=== PATIENT | male | born 1990 | race African-American/Black ===

== ENCOUNTER 2019-06-29 13:17 | Emergency (ER) | payer BC ==
[2019-06-29 13:30] VITALS: BP 146/76; PULSE 69; RESP 18; TEMP 98.6
[2019-06-29] MEDS ORDERED: PROPARACAINE 0.5% OPHTH DROPS 15 ML BTL RIGHT EYE STA (14:05)
[2019-06-29] MEDS ORDERED: ERYTHROMYCIN 5 MG/GM OPHTH OINT 3.5 GM TUBE BOTH EYES STA (14:55)
--- NOTE | 2019-06-29 15:00 | ED ---
General Adult HPI - General Chief complaint: Upper Respiratory Infection Stated complaint: Congested Time Seen by Provider: 06/29/19 13:29 Source: patient, RN notes reviewed, old records reviewed Mode of arrival: ambulatory Limitations: no limitations - History of Present Illness Initial comments: 29-year-old male patient presents ED chief complaint of waking up this morning with last matting, purulent drainage from eyes. Patient also reports that they're mildly itchy and red. Patient reports that he may itched his right eye quite a bit, now has some burning in his right eye. Patient denies any changes in vision. Patient denies any use of contact lenses. Patient denies any other complaints. Systemic: Pt denies fatigue, fever/chills, rash. Pt denies weakness, night sweats, weight loss. Neuro: Pt denies headache, visual disturbances, syncope or pre-syncope. HEENT: Pt denies otalgia, rhinorrhea, pharyngitis or notable lymphadenopathy. Cardiopulmonary: Pt denies chest pain, SOB, heart palpitations, dyspnea on exertion. Abdominal/GI: Pt denies abdominal pain, n/v/d. : Pt denies dysuria, burning w/ urination, frequency/urgency. Denies new onset urinary or bowel incontinence. MSK: Pt denies myalgia, loss of strength or function in extremities. Neuro: Pt denies new onset weakness, paresthesias. - Related Data Previous Rx's Medication Instructions Recorded Erythromycin Ophth Oint [Romycin 1 applic BOTH EYES QID 7 Days #1 06/29/19 Ophth Oint] tube Allergies Allergy/AdvReac Type Severity Reaction Status Date / Time No Known Allergies Allergy Verified 06/29/19 13:30 Review of Systems ROS Statement: Those systems with pertinent positive or pertinent negative responses have been documented in the HPI. ROS Other: All systems not noted in ROS Statement are negative. Past Medical History Past Medical History: No Reported History History of Any Multi-Drug Resistant Organisms: None Reported Past Surgical History: No Surgical Hx Reported Past Psychological History: No Psychological Hx Reported Smoking Status: Never smoker Past Alcohol Use History: Occasional Past Drug Use History: None Reported General Exam - General Exam Comments Initial Comments: Constitutional: NAD, AOX3, Pt has pleasant affect. HEENT: NC/AT, trachea midline, neck supple, no lymphadenopathy. Posterior pharynx non erythematous, without exudates. External ears appear normal, without discharge. Mucous membranes moist. Eyes PERRLA, EOM intact. There is no scleral icterus. No pallor noted. IOP 18 bilaterally. Mild injection noted bilaterally. Flourescene strain performed in right eye, did not display any corneal abrasion.Cardiopulmonary: RRR, no murmurs, rubs or gallops, no JVD noted. Lungs CTAB in anterior and posterior upton. No peripheral edema. Abdominal exam: Abdomen soft and non-distended. Abdomen non-tender to palpation in all 4 quadrants. Bowel sounds active in LLQ. No hepatosplenomegaly. No ecchymosis Neuro: CN II-XII grossly intact. No nuchal rigidity. No raccon eyes, no quintanilla sign, no hemotympanum. No cervical spinal tenderness. MSK: No posterior calf tenderness bilaterally, homans sign negative bilaterally. Posterior tibialis and radial pulse +2 bilaterally. Sensation intact in upper and lower extremities. Full active ROM in upper and lower extremities, 5/5 stregnth. Limitations: no limitations Course Vital Signs 06/29/19 06/29/19 13:27 13:32 Temperature 98.6 F Pulse Rate 69 Respiratory 18 18 Rate Blood Pressure 146/76 O2 Sat by Pulse 98 Oximetry Medical Decision Making - Medical Decision Making 29-year-old male patient presents ED chief complaint of waking up this morning with last matting, purulent drainage from eyes. Patient also reports that they're mildly itchy and red. Patient reports that he may itched his right eye quite a bit, now has some burning in his right eye. Patient denies any changes in vision. Patient denies any use of contact lenses. Patient denies any other complaints. Pt VSS, afebrile. Physical exam displayed: IOP 18 bilaterally. Mild injection noted bilaterally. Flourescene strain performed in right eye, did not display any corneal abrasion. Patient will be discharged with erythromycin for her conjunctivitis. Patient will follow-up with primary care provider, will follow up with hose tubing backer if symptoms persist or worsen. Case discussed with Dr. Joseph. Disposition Clinical Impression: Conjunctivitis Disposition: HOME SELF-CARE Condition: Stable Instructions (If sedation given, give patient instructions): Conjunctivitis (ED) Additional Instructions: Patient to adhere to previously discussed treatment plan and will take medication(s) as directed. Patient to follow up with PCP in 1-2 days. Patient to return to ED if symptoms do not improve. Follow-up with primary care physician. Use medication as directed. Return to ER if condition worsens. Follow-up with hose tubing backer condition worsens. Prescriptions: Erythromycin Ophth Oint [Romycin Ophth Oint] 1 applic BOTH EYES QID 7 Days #1 tube Is patient prescribed a controlled substance at d/c from ED?: No Referrals: None,Stated [Primary Care Provider] - 1-2 days Duke Gomez MD [STAFF PHYSICIAN] - 1-2 days
== END 2019-06-29 15:16 | disposition home or self-care (01) ==
LOC: EC 13:17
DX: H10.9 Unspecified conjunctivitis (principal)
CPT/HCPCS: 99283